=== PATIENT | female | born 1995 | race African-American/Black ===

== ENCOUNTER 2016-10-26 18:30 | Emergency (ER) | payer BC ==
[2016-10-26 19:52] LABS: Appearance,Urine Clear (Clear); Bacteria,Urine Rare /hpf; Bilirubin,Urine Negative (Negative); Glucose,Urine (UA) Negative (Negative); Ketones,Urine Negative (Negative); Leukocyte Esterase,Urine Negative (Negative); Mucus,Urine Rare /hpf; Nitrite,Urine Negative (Negative); Particle Count 1711; Protein,Urine Negative (Negative); RBC,Urine 9 /hpf (0-5); Specific Gravity,Urine 1.004 (1.001-1.035); Squamous Epithelial Cell,Urine 1 /hpf (0-4); UA Billing (MACRO vs. MICRO) MICRO; Urobilinogen,Urine <2.0 mg/dL (<2.0); WBC,Urine 1 /hpf (0-5)
[2016-10-26 20:48] VITALS: RESP 18; TEMP 98.9
--- NOTE | 2016-10-26 20:54 | US ---
EXAMINATION TYPE: US OB <=14 wks transvag DATE OF EXAM: 10/26/2016 8:17 PM COMPARISON: NONE CLINICAL HISTORY: Pain. Patient states started to bleed bright red x 1 hour ago. No pain. EXAM PERFORMED: Transvaginal (TV) and Transabdominal (TA) endovaginal scanning performed for better evaluation of the uterus and ovaries EXAM MEASUREMENTS: GESTATIONAL AGE / DATING Dates by LMP: (7 weeks/3 days) EDC: 06/11/2017 Dates by Current Scan: No IUP seen at this time MATERNAL ANATOMY Uterus: 9.9 x 6.9 x 5.8 cm Right Ovary: 4.87 x 2.3 x 2.3 cm Left Ovary: 3.1 x 2.3 x 1.4 cm Post CDS / Adnexa: free fluid seen adjacent to RO Presence of free fluid: Posterior cul de sac Presence of corpus luteal cyst: right ovary = 2.3 x 2.3 x 2.1 cm GESTATION / SURVEY CRL: No IUP seen at this time MSD: No GS seen at this time IUP: No IUP seen at this time Date of LMP: 09/04/2016, G1 Beta HcG (if available): No available Endometrium appears thickened and heterogeneous with possible complex lesion = 4.1 x 3.6 x 3.1 cm. N o GS, YS or CRL seen. Grayscale, color Doppler imaging performed. IMPRESSION: Heterogeneous abnormally thickened endometrium, no intrauterine is evident, recommend CARPET CLEANER c onsult
--- NOTE | 2016-10-26 21:04 | ED ---
Female Urogenital HPI - General Chief complaint: Vaginal Bleeding Stated complaint: Bleeding, 7 weeks preg Time Seen by Provider: 10/26/16 18:39 Source: patient, RN notes reviewed, old records reviewed Mode of arrival: ambulatory Limitations: no limitations - History of Present Illness Initial comments: This is a 21 year old female stating she is 7 weeks pregant with one hour of vaginal bleeding. Denies any cramping, abdominal pain, fever, chills, dysuria , nausea, or vomiting. Patient states that she thinks she is miscarrying. She reports multiple clots. Patient states that she follow up with her OBGYN on [address], Dr. Pride. She states that she has not had any appointment with her OBGYN for this yet. - Related Data Home Medications Medication Instructions Recorded Confirmed Cholecalciferol [Vitamin D3] 1,000 unit PO DAILY 10/26/16 10/26/16 Pnv with Ca,No.72/Iron/FA 1 tab PO DAILY 10/26/16 10/26/16 [ Plus Tablet] Allergies Allergy/AdvReac Type Severity Reaction Status Date / Time No Known Allergies Allergy Verified 10/26/16 18:51 Review of Systems ROS Statement: Those systems with pertinent positive or pertinent negative responses have been documented in the HPI. ROS Other: All systems not noted in ROS Statement are negative. Constitutional: Denies: fever, chills Eyes: Denies: eye pain ENT: Denies: ear pain Respiratory: Denies: cough, dyspnea Cardiovascular: Denies: chest pain, palpitations Endocrine: Denies: fatigue Gastrointestinal: Denies: abdominal pain, nausea Genitourinary: Reports: abnormal menses. Denies: urgency, dysuria Musculoskeletal: Denies: back pain Skin: Denies: rash Neurological: Denies: headache Psychiatric: Denies: anxiety Hematological/Lymphatic: Denies: easy bleeding Past Medical History Past Medical History: No Reported History History of Any Multi-Drug Resistant Organisms: None Reported Past Surgical History: No Surgical Hx Reported Past Psychological History: No Psychological Hx Reported Smoking Status: Never smoker Past Alcohol Use History: None Reported Past Drug Use History: None Reported General Exam - General Exam Comments Initial Comments: This is a 21 year old female, no distress. Limitations: no limitations General appearance: alert, in no apparent distress Head exam: Present: atraumatic, normocephalic, normal inspection Eye exam: Present: normal appearance, PERRL, EOMI. Absent: scleral icterus, conjunctival injection, periorbital swelling ENT exam: Present: normal exam, mucous membranes moist Neck exam: Present: normal inspection. Absent: tenderness, meningismus, lymphadenopathy Respiratory exam: Present: normal lung sounds bilaterally. Absent: respiratory distress, wheezes, rales, rhonchi, stridor Cardiovascular Exam: Present: regular rate, normal rhythm, normal heart sounds. Absent: systolic murmur, diastolic murmur, rubs, gallop, clicks GI/Abdominal exam: Present: soft, normal bowel sounds. Absent: distended, tenderness, guarding, rebound, rigid External exam: Present: normal external exam. Absent: erythema Speculum exam: Present: vaginal discharge, cervical discharge (cervix apears dilated. ), vaginal bleeding. Absent: normal speculum exam Extremities exam: Present: normal inspection, full ROM, normal capillary refill. Absent: tenderness, pedal edema, joint swelling, calf tenderness Back exam: Present: normal inspection Neurological exam: Present: alert, oriented X3, CN II-XII intact Psychiatric exam: Present: normal affect, normal mood Skin exam: Present: warm, dry, intact, normal color. Absent: rash Course Vital Signs 10/26/16 10/26/16 10/26/16 18:36 20:47 22:29 Temperature 98.2 F 98.9 F 98.9 F Pulse Rate 78 90 94 Respiratory 20 18 18 Rate Blood Pressure 142/70 127/66 133/74 O2 Sat by Pulse 98 100 100 Oximetry Medical Decision Making - Medical Decision Making This is a 21-year-old female with chief complaint of vaginal bleeding for one day. She reports that she is 7 weeks . 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 Pride. Patient is O-, therefore rhogam given. Hcg is 71,000, discussed repeating blood work. Unable to detect fetus on US, thickened endometrium. Patient agrees to follow up with OBGYN and return parameters discussed. - Lab Data Lab Results 10/26/16 10/26/16 10/26/16 Range/Units 19:31 19:31 19:31 HCG, Quant 46645.2 mIU/mL Urine Color Light Yellow Urine Appearance Clear (Clear) Urine pH 6.0 (5.0-8.0) Ur Specific [place] 1.004 (1.001-1.035) Urine Protein Negative (Negative) Urine Glucose (UA) Negative (Negative) Urine Ketones Negative (Negative) Urine Blood Moderate H (Negative) Urine Nitrite Negative (Negative) Urine Bilirubin Negative (Negative) Urine Urobilinogen <2.0 (<2.0) mg/dL Ur Leukocyte Esterase Negative (Negative) Urine RBC 9 H (0-5) /hpf Urine WBC 1 (0-5) /hpf Ur Squamous Epith Cells 1 (0-4) /hpf Urine Bacteria Rare H (None) /hpf Urine Mucus Rare H (None) /hpf Blood Type O Negative Blood Type Recheck No Antibody Screen NEGATIVE - Radiology Data Radiology results: report reviewed Heterogeneous abnormality a thickened endometrium, no IUP evident. Recommended STRATEGIC DEVELOPMENT MANAGER consult. Endometrium appears thickened and heterogeneous with complex lesion 4.1 x 3.6 x 3.1 cm. No GI, last her sterile seen. Disposition Clinical Impression: Threatened miscarriage in early Disposition: HOME SELF-CARE Condition: Good Instructions: Miscarriage (ED) Additional Instructions: Patient denies to follow-up with her primary care physician and BILINGUAL RECRUITER as soon as possible. Discussed the use of had to receive RhoGAM. Repeat her blood work in 2 days. Return to emergency department if any alarming signs or symptoms occur. Referrals: Nonstaff,Physician [Primary Care Provider] - 1-2 days Armida Day MD [STAFF PHYSICIAN] - 1-2 days Time of Disposition: 22:28
[2016-10-26] MEDS ORDERED: Rhogam IMMUNE GLOBULIN 1,500 UNIT/1 ML IM ONE (21:21)
[2016-10-26 22:30] VITALS: BP 133/74; PULSE 94
== END 2016-10-26 22:37 | disposition home or self-care (01) ==
LOC: EC 18:30
DX: O20.0 Threatened abortion (principal); Z3A.01 Less than 8 weeks gestation of pregnancy; Z79.899 Other long term (current) drug therapy
CPT/HCPCS: 36415; 86900; 86901; 86850; 81001; 84702; 76801; 76817; 99284; 96372; J2791